=== PATIENT | female | born 1985 | race Native Hawaiian/Other Pacific Islander ===

== ENCOUNTER 2017-05-08 06:07 | Emergency (ER) | payer BC ==
[~2017-05-08] VITALS: Ht 157.5 cm; Wt 68.0 kg
--- NOTE | 2017-05-08 06:23 | NUR ---
PT AMBULATORY TO ER BED 9. PT BIB , PT C/O CNTACT EYE STUCK IN RIGHT EYE X 15 HOURS. VSS/RESP EVEN UNLABORED/NAD NOTED. AWAITING MDE JOSELITO.
--- NOTE | 2017-05-08 06:25 | NUR ---
AT BEDSIDE FOR EVAL.
[2017-05-08] MEDS ORDERED: FLUORESCEIN SODIUM OPHTH 1 EA STRIP ONE (06:26)
[2017-05-08] MEDS ORDERED: TETRACAINE HCL/PF 0.5% UD 2 ML BOTTLE ONE (06:27)
[2017-05-08] MEDS ORDERED: TETRACAINE HCL/PF 0.5% UD 2 ML BOTTLE RIGHTEYE ONE (06:30)
[2017-05-08] MEDS ORDERED: FLUORESCEIN SODIUM OPHTH 1 EA STRIP OP ONE (06:30)
[2017-05-08] MEDS ORDERED: IV NS 0.9% 250 ML BAG IV ONE (07:00)
--- NOTE | 2017-05-08 07:04 | NUR ---
Patient discharged to home in stable condition. Written and verbal after care instructions given. Patient verbalizes understanding of instruction. Patient ambulatory with a steady gait.
[2017-05-08 07:05] VITALS: BP 124/74
== END 2017-05-08 07:05 | disposition home or self-care (01) ==
LOC: ER 06:07
DX: H10.31 Unspecified acute conjunctivitis, right eye (principal)
CPT/HCPCS: A4606; J7050; Z7610